=== PATIENT | male | born 1980 | race Caucasian/White ===

== ENCOUNTER 2017-02-14 11:07 | Emergency (ER) | payer BC ==
[~2017-02-14] VITALS: Ht 182.9 cm; Wt 90.1 kg
[2017-02-14] MEDS ORDERED: KEFLEX500 MG PO (14:30)
[2017-02-14 15:08] VITALS: BP 122/97
== END 2017-02-14 15:09 | disposition home or self-care (01) ==
LOC: EME 11:07
PROC: 0HQEXZZ Repair Left Lower Arm Skin, External Approach (ICD-10-PCS; principal; 2017-02-14)
DX: S51.822A Laceration with foreign body of left forearm, initial encounter (principal); W27.0XXA Contact with workbench tool, initial encounter; Z88.2 Allergy status to sulfonamides; F17.200 Nicotine dependence, unspecified, uncomplicated
CPT/HCPCS: 99281; 99285

== ENCOUNTER 2018-04-05 03:33 | Emergency (ER) | payer BC ==
[~2018-04-05] VITALS: Ht 177.8 cm; Wt 89.2 kg
[~2018-04-05 03:33] MED LIST: KEFLEX500 MG PO
[2018-04-05 04:01] LABS: APPEARANCE CLEAR ((CLEAR)); BILIRUBIN NEGATIVE; BLOOD SMALL; COLOR YELLOW ((YELLOW)); GLUCOSE (STRIP) NEGATIVE; KETONES NEGATIVE; LEUKOCYTES NEGATIVE; NITRITE NEGATIVE; PROTEIN (STRIP) >=500; SPECIFIC GRAVITY 1.025 (1.000-1.030)
[2018-04-05 04:04] LABS: HEMATOCRIT 46.7 % (38.0-50.0); HEMOGLOBIN 15.7 G/DL (12.5-16.6); MCH 29.2 PG (29.0-34.0); MCHC 33.6 G/DL (30.0-36.0); PLATELET COUNT 262 K/uL (156-360); RBC DIS.WIDTH-CV 12.8 % (11.8-14.6); RBC DIS.WIDTH-SD 40.5 % (39-53); RED BLOOD COUNT 5.37 M/uL (4.00-5.50); WHITE BLOOD COUNT 6.6 K/uL (4.1-10.2)
[2018-04-05 04:05] LABS: BACTERIA NONE SEEN /HPF; EPITHELIAL CELLS RARE /HPF; MUCUS 3+ /LPF; RED BLOOD CELLS 40-50 /HPF (0-5); UCUL ADDED? NO; WHITE BLOOD CELLS 0-5 /HPF (0-5)
[2018-04-05 04:14] LABS: CHLORIDE 105 mEq/L (99-109); POTASSIUM 3.8 mEq/L (3.7-5.4); SODIUM 141 mEq/L (136-147)
[2018-04-05 04:16] LABS: GLUCOSE 130 mg/dL (70-99)
[2018-04-05 04:20] LABS: CREATININE 1.1 mg/dL (0.6-1.3); GFR ESTIMATE (CALCULATED) > 59 mL/min/ (58.99-99999)
[2018-04-05 04:21] LABS: UREA NITROGEN (BUN) 12 mg/dL (9-23)
[2018-04-05] MEDS ORDERED: PERCOCET 5/31 TABLET PO (05:11)
[2018-04-05 05:37] VITALS: BP 138/95
== END 2018-04-05 05:37 | disposition home or self-care (01) ==
LOC: EME 03:33
PROVIDERS: Emergency Medicine
DX: N20.0 Calculus of kidney (principal); F17.200 Nicotine dependence, unspecified, uncomplicated; Z88.2 Allergy status to sulfonamides; Z88.1 Allergy status to other antibiotic agents
CPT/HCPCS: 74176; 80048; 81003; 85027; 99281; 99284; J1885; J7030